=== PATIENT | female | born 1955 | race American Indian/Alaskan Native ===

== ENCOUNTER → 2018-02-10 07:53 | Outpatient (CLI) | payer OTHER, SELFPAY ==
[2018-02-10 08:34] LABS: Add Manual Diff / Slide Review NO; Basophils Percent Auto 0.4 % (0-2); Eosinophils Percent Auto 2.8 % (2-4); Hematocrit 45.2 % (36-46); Hemoglobin 15.3 g/dL (12.0-16.0); Lymphocytes Percent Auto 37.4 % (25-40); Mean Corpuscular HGB Conc 33.8 % (30-36); Mean Corpuscular Hemoglobin 27.6 PG (26-34); Mean Corpuscular Volume 81.7 fL (80-100); Monocytes Percent Auto 6.6 % (3-14); Neutrophils Absolute Auto 3100 /uL (3000-5900); Neutrophils Percent Auto 52.8 % (50-75); Platelet Count 205 X10^3/uL (150-400); Red Blood Cell Count 5.53 X10^6/uL (4.0-5.2); Red Cell Distribution Width 14.8 % (11.6-14.8)
== END ==
PROVIDERS: PCP Nurse Practitioner Family; Visit Provider Nurse Practitioner Family
DX: B99.9 Unspecified infectious disease (principal)
CPT/HCPCS: 36415; 85025

== ENCOUNTER → 2018-12-05 07:50 | Outpatient (CLI) | payer MEDICARE, SELFPAY ==
[2018-12-05 08:32] LABS: Hematocrit 46.6 % (36-46); Hemoglobin 15.2 g/dL (12.0-16.0)
[2018-12-05 08:34] LABS: Cholesterol 213 mg/dL (140-199); HDL Cholesterol 69 mg/dL (40-60); LDL Cholesterol Calculated 130 mg/dL (<100); Triglycerides 70 mg/dL (35-150)
[2018-12-05 09:01] LABS: TSH w/ Reflex to FT4 1.45 uIU/mL (0.47-4.68)
[2018-12-05 09:20] LABS: Vitamin B12 702 pg/mL (239-931)
== END ==
PROVIDERS: PCP Student in an Organized Health Care Education/Training Program; Visit Provider Student in an Organized Health Care Education/Training Program
DX: Z13.220 Encounter for screening for lipoid disorders (principal); R53.83 Other fatigue; Z91.89 Other specified personal risk factors, not elsewhere classified
CPT/HCPCS: 36415; 80061; 82306; 82607; 84443; 85014; 85018

== ENCOUNTER → 2021-01-05 13:04 | Outpatient (CLI) | payer OTHER, SELFPAY | PROVIDERS: PCP Nurse Practitioner Family; Referring Provider Nurse Practitioner Family; Visit Provider Nurse Practitioner Family | DX: M81.0 Age-related osteoporosis without current pathological fracture (principal); Z78.0 Asymptomatic menopausal state; Z82.62 Family history of osteoporosis; Z87.891 Personal history of nicotine dependence | CPT/HCPCS: 77080 ==

== ENCOUNTER 2022-08-30 11:20 | Emergency (ER) | payer OTHER, SELFPAY ==
[2022-08-30] VITALS (11 sets, daily range): BP systolic 99–175; BP diastolic 67–95; PULSE 67–97; RESP 15–23; TEMP 36.7; O2SAT 97–100; BMI 23.0
--- NOTE | 2022-08-30 11:37 | DI.CT.S_ITS ---
PROCEDURE: CT HEAD/BRAIN WO CON INDICATIONS: fall TECHNIQUE: Noncontrast 4.5 mm thick angled axial sections acquired from the foramen magnum to the vertex, with coronal and sagittal reformats. For radiation dose reduction, the following was used: automated exposure control, adjustment of mA and/or kV according to patient size. COMPARISON: None. FINDINGS: Image quality: Excellent. CSF spaces: Basal cisterns are patent. No extra-axial fluid collections. The ventricles are symmetric in size and shape. Brain: No intracranial bleeds or masses. There is cerebral volume loss for age, with resultant ventricular and sulcal prominence. There are periventricular and deep white matter chronic small vessel ischemic changes. There is intracranial internal carotid artery atherosclerosis. Skull and face: Mildly displaced bilateral nasal bone fractures. Calvaria and skull base intact. Sinuses: Visualized sinuses and mastoids are clear. IMPRESSION: No acute intracranial finding. Mildly displaced bilateral nasal bone fractures. Dictated by: Jarrod Woodruff M.D. on 08/30/2022 at 12:28 Approved by: Jarrod Woodruff M.D. on 08/30/2022 at 12:29
--- NOTE | 2022-08-30 11:37 | DI.CT.S_ITS ---
PROCEDURE: CT CERVICAL SPINE WO CON INDICATIONS: fall TECHNIQUE: Noncontrast 3 mm thick sections acquired from the skull base to the T4 level. Sagittal and coronal reformats were then constructed. For radiation dose reduction, the following was used: automated exposure control, adjustment of mA and/or kV according to patient size. COMPARISON: None. FINDINGS: Image quality: Excellent. Bones: No fracture or dislocation. Intervertebral disc spaces and facets are congruent without asymmetric or abnormal widening. No suspicious lytic or blastic osseous lesion. Mild degenerative changes most pronounced at C4-C5 and C6-C7. Congenital versus degenerative fusion of the left C2-C3 facet. Visualized superior ribs are intact. Soft tissues: Prevertebral soft tissues are normal in thickness. No paravertebral hematomas. IMPRESSION: No CT evidence of acute traumatic cervical spine injury. The Dictated by: Jarrod Wodoruff M.D. on 08/30/2022 at 12:34 Approved by: Jarrod Woodruff M.D. on 08/30/2022 at 12:36
--- NOTE | 2022-08-30 11:37 | DI.RAD.S_ITS ---
PROCEDURE: XR CHEST 1V INDICATIONS: chest pain TECHNIQUE: One view of the chest was acquired. COMPARISON: [facility], , CHEST 2 VIEW, 09/26/2007, 8:42. FINDINGS: Surgical changes and devices: None. Lungs and pleura: Lungs are clear. No pleural effusions or pneumothorax. Mediastinum: Mediastinal contours appear normal. Heart size is normal. Bones and chest wall: No suspicious bony lesions. Overlying soft tissues appear unremarkable. IMPRESSION: No evidence acute pulmonary process. Dictated by: Frankie Michaud M.D. on 08/30/2022 at 12:24 Approved by: Frankie Michaud M.D. on 08/30/2022 at 12:24
--- NOTE | 2022-08-30 11:37 | DI.CT.S_ITS ---
PROCEDURE: CT FACIAL BONES WO CON INDICATIONS: fall TECHNIQUE: Noncontrast 2.5 mm thick axial images acquired from the mandible through the frontal sinuses, with coronal and sagittal reformatting. For radiation dose reduction, the following was used: automated exposure control, adjustment of mA and/or kV according to patient size. COMPARISON: None. FINDINGS: Image quality: Excellent. Bones and teeth: Mildly displaced bilateral nasal bone fractures, slightly comminuted on the right. Sinuses: Paranasal sinuses are aerated, without fluid levels, mucosal thickening, or mucoceles. Mastoid air cells are aerated. Soft tissues: No edema, masses, or fluid collections. No enlarged lymph nodes. No soft tissue lacerations or debris. Vascular: Visualized vascular structures appear normal in the absence of contrast. Bony vascular foramina and canals are intact. IMPRESSION: Acute mildly displaced bilateral nasal bone fractures, slightly comminuted on the right. Dictated by: Jarrod Woodruff M.D. on 08/30/2022 at 12:29 Approved by: Jarrod Woodruff M.D. on 08/30/2022 at 12:30
--- NOTE | 2022-08-30 12:34 | ED_ITS ---
HPI - Fall General Chief Complaint: Fall Stated Complaint: glf Time Seen by Provider: 08/30/22 11:36 History of Present Illness HPI Narrative: Patient is a 66-year-old female who presents have a ground level fall. She says she tripped over her own feet going on the stairs. She fell face forward hitting her nose. She did not lose consciousness. She is alert laceration on her forehead on the right side. She is not on any antiplatelet or anticoagulation. She has epistaxis which bleeding is now controlled. Per EMS started becoming vasovagal had hypotensive reaction which now is getting better with fluids. She denies any other pain or injury. Able to move all extremities. She woke up this morning she was feeling in her normal state of health both yesterday and today. She denies any chest pain palpitations or dizziness prior to fall. Related Data Home Medications Medication Instructions Recorded Confirmed [VITAMIN D] Q DAY ##0 12/29/11 01/04/20 Previous Rx's Medication Instructions Recorded acyclovir 400 mg tablet (Zovirax) 400 mg PO TID #15 tabs 11/28/18 citalopram 20 mg tablet 20 mg PO DAILY #90 tabs 12/08/20 Allergies Allergy/AdvReac Type Severity Reaction Status Date / Time amoxicillin [AMOXICILLIN] Allergy Mild RASH Verified 01/04/20 09:00 codeine [CODEINE] Allergy Mild ? Verified 01/04/20 09:00 erythromycin base Allergy Mild RASH Verified 01/04/20 09:00 [ERYTHROMYCIN BASE] Penicillins [PENICILLINS] Allergy Mild RASH Verified 01/04/20 09:00 prochlorperazine Allergy Mild LACK JAW Verified 01/04/20 09:00 [PROCHLORPERAZINE] doxycycline [DOXYCYCLINE] Allergy Unknown Verified 01/04/20 09:00 Review of Systems Review of Systems Narrative: GENERAL: Denies chills, fatigue, malaise, fever, sweats, travel HEENT: Denies sinus pain, ear pain, sore throat, difficulty swallowing, neck pain RESPIRATORY: Denies dyspnea, cough, wheezing, hemoptysis, sputum. CARDIOVASCULAR: Denies chest pain, palpitations, orthopnea, edema GASTROINTESTINAL: Denies nausea, vomiting, abdominal pain, diarrhea, constipation, melena. : Denies dysuria, frequency, incontinence, hematuria, urinary retention, flank pain. MUSCULOSKELETAL: Denies weakness, joint pain, or bony pain SKIN: No rash, no erythema, no pruritus NEUROLOGIC: Fall, see HPI PSYCHIATRIC: No concerning psychosocial issues. 12 point review of systems is negative except for those stated above and HPI Patient History Medical History Abnormal Pap smear of cervix Anemia (1957) Anxiety Arthritis (2006) Bipolar disorder (~1990) Cataract (2014) Chicken pox (1961) Depression (~2009) Foot pain (2013) Hayfever Measles (1959) Mumps Osteoarthritis Osteopenia (~1999) Sensitivity to sunlight Shoulder pain (1997) Sleep apnea Tinnitus (2009) Surgical History Anesthesia complication History of hip replacement (04/2010) Family History Brother Mental health problem COPD (chronic obstructive pulmonary disease) Fibromyalgia Father Cancer High cholesterol Grandmother Dementia Pneumonia Mother Hypertension Grandfather Hypertension Stroke Grandmother Heart disease Sister Breast cancer Thyroid disorder Melanoma Grandfather Cancer Social History marital status: household members: none lives independently: Yes housing: apartment pets and animals: No occupational status: employed special asiya needs: No leisure activities: exercise Smoking Status: Former smoker alcohol intake: never substance use type: does not use Smoking Status: Former smoker Exam Initial Vital Signs Initial Vital Signs: Vital Signs Temperature 98.1 F 08/30/22 11:27 Pulse Rate 67 08/30/22 11:27 Respiratory Rate 16 08/30/22 11:27 Blood Pressure 99/67 08/30/22 11:27 Pulse Oximetry 97 08/30/22 11:27 Oxygen Delivery Method 08/30/22 11:27 GENERAL: Alert 66-year-old female obvious head injury awake alert answer questions HEENT: Head 5 cm laceration right forehead good skin approximation, extraocular muscles intact, KAY, no septal hematoma no significant bony deformity NECK: C-collar in place CARDIOVASCULAR: Regular rate and rhythm without murmurs, rubs or gallops. RESPIRATORY: Breath sounds equal bilaterally, no wheezes rales or rhonchi. No crepitations, no subcutaneous air, chest is nontender, no signs of trauma ABDOMEN: Soft, nontender. Normoactive bowel sounds all 4 quadrants. No guarding or rebound. BACK: Nontender vertebrae, no step-offs, no contusions PELVIS: stable. EXTREMITIES: Normal range of motion, no clubbing or edema. Right upper extremity: Within normal limits Left upper extremity: Within normal limits Right lower extremity: Within normal limits Left lower extremity:Within normal limits NEUROLOGICAL: Cranial nerves II through XII grossly intact. Normal gait and speech. SKIN: Forehead laceration 5cm on right side Procedures Laceration Repair Laceration 1: Side (If applicable): right Size (cm): 5 Description: linear Depth: simple, single layer Local Anesthetic: lidocaine 2% and with epi Amount of anesthesia used (mL): 5 Skin layer closed with: nylon Skin layer suture size: 4-0 Number of sutures: 8 Technique: simple, interrupted Course Orders Ordered: ED Orders 08/30/22 12:31 Complete Blood Count AUTO DIFF Stat Comprehensive Metabolic Panel Stat Lipase Stat Troponin & CK Cardiac Panel Stat Discontinued Medications Sodium Chloride (Normal Saline 0.9%) 1,000 mls @ 1,000 mls/hr IV BOLUS ONE Stop: 08/30/22 12:36 Last Infusion: 08/30/22 14:00 Dose: 0 mls/hr Documented By: Admin: 08/30/22 12:53 Dose: 1,000 mls/hr Documented By: GAEL Morphine Sulfate (Morphine 2 Mg/Ml Inj) 2 mg IV NOW ONE Stop: 08/30/22 12:43 Last Admin: 08/30/22 12:54 Dose: 2 mg Documented By: GAEL Ondansetron HCl (Ondansetron 4 Mg/2 Ml Inj) 4 mg IV NOW ONE Stop: 08/30/22 12:45 Last Admin: 08/30/22 12:53 Dose: 4 mg Documented By: GAEL Vital Signs Vital signs: Vital Signs - 8 hr 08/30/22 13:30 08/30/22 13:31 08/30/22 13:31 Pulse Rate 93 H 97 H Respiratory Rate Blood Pressure 157/83 H Pulse Oximetry 100 100 Oxygen Delivery Method 08/30/22 14:00 08/30/22 14:00 08/30/22 14:25 Pulse Rate 80 Respiratory Rate 23 Blood Pressure 138/95 H 132/72 Pulse Oximetry 99 Oxygen Delivery Method 08/30/22 14:25 08/30/22 15:47 Pulse Rate 82 86 Respiratory Rate Blood Pressure 132/72 Pulse Oximetry 99 97 Oxygen Delivery Method Room Air fall Lab Data Result diagrams: 08/30/22 12:31 08/30/22 12:31 Labs: Lab Results 08/30/22 08/30/22 08/30/22 Range/Units 11:30 12:31 12:31 WBC 9.3 (4.5-11.0) X10^3/uL RBC 5.56 H (4.0-5.2) X10^6/uL Hgb 15.5 (12.0-16.0) g/dL Hct 46.7 H (36-46) % MCV 84.0 (80-100) fL MCH 27.8 (26-34) PG MCHC 33.2 (30-36) % RDW 13.5 (11.6-14.8) % Plt Count 194 (150-400) X10^3/uL Neut % (Auto) 71.3 (50-75) % Lymph % (Auto) 21.6 L (25-40) % [place] % (Auto) 5.4 (3-14) % Eos % (Auto) 0.9 L (2-4) % Baso % (Auto) 0.8 (0-2) % Neut # (Auto) 6600 (6133-4955) /uL Lymph # (Auto) 2000 (0884-8417) /uL [place] # (Auto) 500 (0-900) /uL Eos # (Auto) 100 (0-450) /uL Baso # (Auto) 100 (0-100) /uL Sodium 139 (137-145) mmol/L Potassium 4.2 (3.4-5.1) mmol/L Chloride 102 (98-107) mmol/L Carbon Dioxide 29 (22-32) mmol/L BUN 16 (7-17) mg/dL Creatinine 0.90 (0.52-1.04) mg/dL Estimated GFR > 60 (>60) mL/min BUN/Creatinine Ratio 17.8 (6-22) Glucose 104 (80-110) mg/dL Calcium 9.4 (8.4-10.2) mg/dL Total Bilirubin 0.7 (0.2-1.3) mg/dL AST 25 (14-36) IU/L ALT 22 (<35) IU/L Alkaline Phosphatase 84 (38-126) U/L Total Creatine Kinase 46 (30-135) U/L CK-MB (CK-2) TNP CK-MB (CK-2) Rel Index TNP Troponin I < 0.012 (0.01-0.034) ng/mL Total Protein 7.5 (6.3-8.2) g/dL Albumin 4.3 (3.5-5.0) g/dL Globulin 3.2 (1.7-4.1) g/dL Albumin/Globulin Ratio 1.3 (1.0-2.8) Lipase 258 (23-300) U/L Urine RBC None seen (0-5/HPF) Urine WBC 0-1/hpf (0-5/HPF) Ur Squamous Epith Cells 1-5 /hpf (0-5/HPF) Urine Bacteria None seen (None) Ur Culture Indicated? Cult not indicated Urine Dip Bedside Urine Glucose Negative Bedside Urine Bilirubin - Negative Bedside Urine Ketone - Negative Urine Specific [place] 1.015 Bedside Urine Occult Blood +/- Bedside Urine pH 6.0 Bedside Urine Protein +/- 15 Bedside Urine Urobilinogen - Negative Bedside Urine Nitrite - Negative Bedside Urine Leukocytes - Negative Esterase Imaging Data CT - cervical spine: Radiologist's Impression: nt: Yoly Haro MR#: [id number] : 1955 Acct:[id number] Age/Sex: 66 / F Date of Service: 08/30/22 Loc: ED Accession Number: [id number] ?? Procedure: CT cervical spine wo con Ordering Provider: Liz Torres D.O. PROCEDURE:? CT CERVICAL SPINE WO CON ? INDICATIONS:? fall ? TECHNIQUE:? Noncontrast 3 mm thick sections acquired from the skull base to the T4 level.? Sagittal and coronal reformats were then constructed.? For radiation dose reduction, the following was used:? automated exposure control, adjustment of mA and/or kV according to patient size.? ? COMPARISON:? None. ? FINDINGS:? Image quality:? Excellent.? ? Bones:? No fracture or dislocation.? Intervertebral disc spaces and facets are congruent without asymmetric or abnormal widening.? No suspicious lytic or blastic osseous lesion.? Mild degenerative changes most pronounced at C4-C5 and C6-C7.? Congenital versus degenerative fusion of the left C2-C3 facet.? Visualized superior ribs are intact.? ? Soft tissues:? Prevertebral soft tissues are normal in thickness.? No paravertebral hematomas.? ? ? IMPRESSION:? No CT evidence of acute traumatic cervical spine injury.? The ? Dictated by: Jarrod Woodruff M.D. on 08/30/2022 at 12:34 ? ? Chest x-ray: Radiologist's Impression: Signed Patient: Yoly Haro MR#: [id number] : 1955 Acct:[id number] Age/Sex: 66 / F Date of Service: 08/30/22 Loc: ED Accession Number: [id number] ?? Procedure: XR chest 1V Ordering Provider: Liz Torres D.O. PROCEDURE:? XR CHEST 1V ? INDICATIONS:? chest pain ? TECHNIQUE:? One view of the chest was acquired.? ? COMPARISON:? [facility], CHEST 2 VIEW, 09/26/2007, 8:42. ? FINDINGS:? ? Surgical changes and devices:? None.? ? Lungs and pleura:? Lungs are clear.? No pleural effusions or pneumothorax.? ? Mediastinum:? Mediastinal contours appear normal.? Heart size is normal.? ? Bones and chest wall:? No suspicious bony lesions.? Overlying soft tissues appear unremarkable.? ? IMPRESSION:? No evidence acute pulmonary process. ? ? ? Dictated by: Frankie Michaud M.D. on 08/30/2022 at 12:24 ? ? CT scan - head: Radiologist's Impression: Signed Patient: Yoly Haro MR#: [id number] : 1955 Acct:[id number] Age/Sex: 66 / F Date of Service: 08/30/22 Loc: ED Accession Number: [id number] ?? Procedure: CT head/brain wo con Ordering Provider: Liz Torres D.O. PROCEDURE:? CT HEAD/BRAIN WO CON ? INDICATIONS:? fall ? TECHNIQUE:? Noncontrast 4.5 mm thick angled axial sections acquired from the foramen magnum to the vertex, with coronal and sagittal reformats.? For radiation dose reduction, the following was used:? automated exposure control, adjustment of mA and/or kV according to patient size.? ? COMPARISON:? None. ? FINDINGS:? Image quality:? Excellent.? ? CSF spaces:? Basal cisterns are patent.? No extra-axial fluid collections.? The ventricles are symmetric in size and shape.? ? Brain:? No intracranial bleeds or masses.? There is cerebral volume loss for age, with resultant ventricular and sulcal prominence.? There are periventricular and deep white matter chronic small vessel ischemic changes.? There is intracranial internal carotid artery atherosclerosis.? ? Skull and face:? Mildly displaced bilateral nasal bone fractures.? Calvaria and skull base intact. ? Sinuses:? Visualized sinuses and mastoids are clear.? ? IMPRESSION:? No acute intracranial finding.? Mildly displaced bilateral nasal bone fractures. ? ? Dictated by: Jarrod Woodruff M.D. on 08/30/2022 at 12:28 ? ? Approved by: Jarrod Woodruff M.D. on 08/30/2022 at 12:29 ? CT Face: Radiologist's Impression: Signed Patient: Yoly Haro MR#: [id number] : 1955 Acct:[id number] Age/Sex: 66 / F Date of Service: 08/30/22 Loc: ED Accession Number: [id number] ?? Procedure: CT facial bones wo con Ordering Provider: Liz Torres D.O. PROCEDURE:? CT FACIAL BONES WO CON ? INDICATIONS:? fall ? TECHNIQUE:? Noncontrast 2.5 mm thick axial images acquired from the mandible through the frontal sinuses, with coronal and sagittal reformatting.? For radiation dose reduction, the following was used:? automated exposure control, adjustment of mA and/or kV according to patient size.? ? COMPARISON:? None. ? FINDINGS:? Image quality:? Excellent.? ? Bones and teeth:? Mildly displaced bilateral nasal bone fractures, slightly comminuted on the right. ? Sinuses:? Paranasal sinuses are aerated, without fluid levels, mucosal thickening, or mucoceles.? Mastoid air cells are aerated.? ? Soft tissues:? No edema, masses, or fluid collections.? No enlarged lymph nodes.? No soft tissue lacerations or debris.? ? Vascular:? Visualized vascular structures appear normal in the absence of contrast.? Bony vascular foramina and canals are intact.? ? IMPRESSION:? Acute mildly displaced bilateral nasal bone fractures, slightly comminuted on the right. ? ? Dictated by: Jarrod Woodruff M.D. on 08/30/2022 at 12:29 ? ? Approved by: Jarrod Woodruff M.D. on 08/30/2022 at 12:30 ? ECG Data Interpretation: NSR 80, PR182 QRS82 CBG150 Q-wave noted in lead [address] elevations or depressions no T-wave inversions signs of ischemia or previous EKGs to compare MDM Narrative Medical decision making narrative: It sounds as though patient had a mechanical fall causing her to fall on her fac e. She is laceration on the right side which is easily sutured. She is found to have mild nasal bone fracture as well. She said likely had a vasovagal episode where her blood pressure decreased but it quickly resolved with IV fluids. Blood work is overall reassuring. At this time no need for any further evaluation or workup. She is given strict return precautions. Discharge Plan Departure Patient Disposition: Home Clinical Impression: Fall, Laceration, Closed fracture nasal bone Instructions: DI for Nose Fracture, DI for Laceration Repair Activity Restrictions/Additional Instructions: *You have been diagnosed with laceration, nose fracture *What to do: Have sutures removed in about 7 days by her primary care provider walk-in clinic. Keep clean and dry with soap and water okay to bathe and shower however no swimming. May apply antibiotic ointment on it 1-2 times daily to help reduce scarring. Do not blow your nose your nose is broken. Will likely heal without any surgery but may need to follow-up with ENT. *Continue to take medications as directed Tylenol 650 mg every 4-6 hours needed for [id number]-ovaeqtwg pain Ibuprofen 600 mg every 6 hours if needed for hnqr-yk-rmkhiait pain *Follow up with your primary care provider in 2-3 days or call [phone] *Return to ER if you should have increasing redness swelling drainage, persistent headache persistent vomiting or any new, worsening or concerning symptoms Prescriptions: No Action [VITAMIN D] Q DAY Qty: 0 citalopram 20 mg tablet 20 mg PO DAILY Qty: 90 0RF Rx Instructions: PT DUE FOR APPT PRIOR TO END OF RX FOR CONT'D FILLS. PLEASE CALL TO SCHED. APPT. THANKS 12/08/20 acyclovir [Zovirax] 400 mg tablet 400 mg PO TID Qty: 15 5RF Referrals: Desiree Bangura ARNP [Primary Care Provider] - Visit Report Forms: Patient Portal/API
[2022-08-30 12:38] LABS: Add Manual Diff / Slide Review NO; Basophils Absolute Auto 100 /uL (0-100); Basophils Percent Auto 0.8 % (0-2); Eosinophils Absolute Auto 100 /uL (0-450); Eosinophils Percent Auto 0.9 % (2-4); Hematocrit 46.7 % (36-46); Hemoglobin 15.5 g/dL (12.0-16.0); Lymphocytes Absolute Auto 2000 /uL (1100-4500); Lymphocytes Percent Auto 21.6 % (25-40); Mean Corpuscular HGB Conc 33.2 % (30-36); Mean Corpuscular Hemoglobin 27.8 PG (26-34); Monocytes Absolute Auto 500 /uL (0-900); Monocytes Percent Auto 5.4 % (3-14); Neutrophils Absolute Auto 6600 /uL (1500-7000); Neutrophils Percent Auto 71.3 % (50-75); Platelet Count 194 X10^3/uL (150-400); Red Blood Cell Count 5.56 X10^6/uL (4.0-5.2); Red Cell Distribution Width 13.5 % (11.6-14.8); White Blood Cell Count 9.3 X10^3/uL (4.5-11.0)
[2022-08-30 12:38] LABS: RBC Urine None Seen (0-5/HPF)
[2022-08-30 12:39] LABS: Bacteria Urine None Seen; Culture Indicated Urine Cult Not Indicated; Squamous Epithelial Cell Urine 1-5 /HPF (0-5/HPF); WBC Urine 0-1/HPF (0-5/HPF)
[2022-08-30 12:53] LABS: Alanine Aminotransferase 22 IU/L (<35); Albumin 4.3 g/dL (3.5-5.0); Albumin Globulin Ratio 1.3 (1.0-2.8); Alkaline Phosphatase 84 U/L (38-126); Aspartate Aminotransferase 25 IU/L (14-36); BUN Creatinine Ratio 17.8 (6-22); Bilirubin Total 0.7 mg/dL (0.2-1.3); Blood Urea Nitrogen 16 mg/dL (7-17); Calcium 9.4 mg/dL (8.4-10.2); Carbon Dioxide 29 mmol/L (22-32); Chloride 102 mmol/L (98-107); Creatine Kinase 46 U/L (30-135); Estimated Glomerular Filt Rate > 60 mL/min (>60); Globulin 3.2 g/dL (1.7-4.1); Glucose 104 mg/dL (80-110); HEMOLYSIS < 15 (0-50); Lipase 258 U/L (23-300); Potassium 4.2 mmol/L (3.4-5.1); Sodium 139 mmol/L (137-145); Total Protein 7.5 g/dL (6.3-8.2)
[2022-08-30] MEDS: SODIUM CHLORIDE 0.9% 1,000 ML 1000 ML IV (12:53)
[2022-08-30] MEDS: ONDANSETRON 4 MG/2 ML INJ IV (12:53)
[2022-08-30] MEDS: MORPHINE 2 MG/ML INJ IV (12:54)
[2022-08-30 13:03] LABS: Troponin I < 0.012 ng/mL (0.01-0.034)
[2022-08-30] MEDS: LIDOCAINE 2% INJ SDV 5 ML (13:15)
== END 2022-08-30 14:30 | disposition home or self-care (01) ==
PROVIDERS: Emergency Provider Emergency Medicine; PCP Nurse Practitioner Family
DX: S02.2XXA Fracture of nasal bones, initial encounter for closed fracture (principal); S01.81XA Laceration without foreign body of other part of head, initial encounter; R07.9 Chest pain, unspecified; W18.30XA Fall on same level, unspecified, initial encounter
CPT/HCPCS: 12013; 36415; 70450; 70486; 71045; 72125; 80053; 81003; 81015; 82550; 83690; 84484; 85025; 93005; 93010; 96361; 96374; 96375; 99284; 99285; J2270; J2405

== ENCOUNTER → 2022-10-21 09:02 | Outpatient (CLI) | payer OTHER, SELFPAY ==
--- NOTE | 2022-10-21 | DI.MG.S_ITS ---
BILATERAL DIGITAL SCREENING MAMMOGRAM 3D/2D WITH CAD: 10/21/2022 CLINICAL: Routine screening. Family history of breast cancer. Comparison is made to exams dated: 01/21/2015 mammogram, 01/11/2014 mammogram, and 01/10/2013 mammogram - [facility]. There are scattered areas of fibroglandular density in both breasts (category b / 25%-50% glandular tissue). Current study was also evaluated with a Computer Aided Detection (CAD) system. There are benign calcifications in the left breast. No significant masses, calcifications, or other findings are seen in either breast. There has been no significant interval change. IMPRESSION: BENIGN There is no mammographic evidence of malignancy. A 1 year screening mammogram is recommended. Based on the Tyrer Cuzick model (a risk assessment model) the patient's lifetime risk is 9.0% and her 10 year risk is 5.3%. According to the ACR, ACS, and NCCN guidelines, an annual breast MRI exam along with mammogram is recommended if the patient's lifetime risk is 20% or greater. This exam was interpreted at Station ID: [id number]. NOTE: For mammograms, a report in lay terms will be sent to the patient. Approximately 15% of breast malignancies will not be visualized mammographically. In the management of a palpable breast mass, a negative mammogram must not discourage biopsy of a clinically suspicious lesion. Electronically Signed By: Megan bolaños/shanice:10/21/2022 16:13:14 letter sent: Normal Exam ACR BI-RADS Category 2: Benign Finding(s) 3342F
== END ==
PROVIDERS: PCP Family Medicine; Referring Provider Family Medicine; Visit Provider Family Medicine
DX: Z12.31 Encounter for screening mammogram for malignant neoplasm of breast (principal); Z80.3 Family history of malignant neoplasm of breast
CPT/HCPCS: 77063; 77067

== ENCOUNTER → 2022-10-22 11:44 | Outpatient (CLI) | payer OTHER, SELFPAY | PROVIDERS: PCP Family Medicine; Referring Provider Family Medicine; Visit Provider Family Medicine | DX: Z78.0 Asymptomatic menopausal state (principal); M81.0 Age-related osteoporosis without current pathological fracture | CPT/HCPCS: 77080; 77081 ==

== ENCOUNTER → 2023-09-09 16:21 | Outpatient (CLI) | payer OTHER, SELFPAY ==
--- NOTE | 2023-09-09 | DI.US.S_ITS ---
PROCEDURE: US PERIPH VENOUS LOW EXTREM LT INDICATIONS: Localized swelling, mass and lump, left lower limb TECHNIQUE: Real-time imaging, as well as color and pulse Doppler interrogation, were performed of the lower extremity deep veins from the inguinal ligament to the popliteal fossa, with documentation of the visualized calf veins. COMPARISON: None. FINDINGS: The common femoral, femoral, popliteal, and the visualized calf veins are normally compressible, and free of intraluminal thrombus. Color and pulse Doppler demonstrate normal phasic intraluminal flow. There is normal augmentation response to distal compression maneuver. IMPRESSION: No findings of lower extremity deep venous thrombosis. Dictated by: Hugh Dick M.D. on 09/09/2023 at 15:51 Approved by: Hugh Dick M.D. on 09/09/2023 at 15:52
== END ==
PROVIDERS: PCP Family Medicine; Referring Provider Family Medicine; Visit Provider Family Medicine
DX: R22.42 Localized swelling, mass and lump, left lower limb (principal)
CPT/HCPCS: 93971

== ENCOUNTER → 2023-11-11 07:57 | Outpatient (CLI) | payer OTHER, SELFPAY ==
--- NOTE | 2023-11-11 07:58 | DI.MG.S_ITS ---
BILATERAL DIGITAL SCREENING MAMMOGRAM 3D/2D WITH CAD: 11/11/2023 CLINICAL: Routine screening. Family history of breast cancer. Comparison is made to exams dated: 10/21/2022 mammogram, 01/21/2015 mammogram, and 01/11/2014 mammogram - [facility]. There are scattered areas of fibroglandular density in both breasts (category b / 25%-50% glandular tissue). Current study was also evaluated with a Computer Aided Detection (CAD) system. There are benign calcifications in the left breast. No significant masses, calcifications, or other findings are seen in either breast. There has been no significant interval change. IMPRESSION: BENIGN There is no mammographic evidence of malignancy. A 1 year screening mammogram is recommended. Based on the Tyrer Cuzick model (a risk assessment model) the patient's lifetime risk is 8.5% and her 10 year risk is 5.4%. According to the ACR, ACS, and NCCN guidelines, an annual breast MRI exam along with mammogram is recommended if the patient's lifetime risk is 20% or greater. This exam was interpreted at Station ID: [id number]. NOTE: For mammograms, a report in lay terms will be sent to the patient. Approximately 15% of breast malignancies will not be visualized mammographically. In the management of a palpable breast mass, a negative mammogram must not discourage biopsy of a clinically suspicious lesion. Electronically Signed By: Obinna diaz/shanice:11/11/2023 12:37:58 letter sent: Normal Exam ACR BI-RADS Category 2: Benign Finding(s) 3342F
== END ==
PROVIDERS: PCP Family Medicine; Referring Provider Family Medicine; Visit Provider Family Medicine
DX: Z12.31 Encounter for screening mammogram for malignant neoplasm of breast (principal); Z80.3 Family history of malignant neoplasm of breast; R92.323 Mammographic fibroglandular density, bilateral breasts
CPT/HCPCS: 77063; 77067

== ENCOUNTER → 2024-01-01 09:41 | Outpatient (CLI) | payer OTHER, SELFPAY ==
[2024-01-01 10:28] LABS: Influenza A - CEPHEID Flu A NEGATIVE (NEGATIVE); Influenza B - CEPHEID Flu B NEGATIVE (NEGATIVE); Respiratory Syncytial Virus Negative (Negative)
[2024-01-01 11:25] LABS: COVID-19 CEPHEID 4-PLEX PCR Negative (Negative)
== END ==
PROVIDERS: PCP Family Medicine; Visit Provider Physician Assistant Medical
DX: R06.2 Wheezing (principal)
CPT/HCPCS: 0241U

== ENCOUNTER 2024-12-25 12:15 | Outpatient (RCR) | payer OTHER, SELFPAY ==
--- NOTE | 2024-12-11 12:40 | PT.OIE ---
Current Diagnoses Benign paroxysmal vertigo, left ear (12/11/24) Benign paroxysmal vertigo, bilateral (12/11/24) Dizziness and giddiness (12/11/24) Past Medical History (Last Reviewed 08/30/22 @ 21:28 by Liz Torres DO) Abnormal Pap smear of cervix Anemia (1957) Anxiety Arthritis (2006) Bipolar disorder (~1990) Cataract (2014) Chicken pox (1961) Depression (~2009) Foot pain (2013) Hayfever Measles (1959) Mumps Osteoarthritis Osteopenia (~1999) Sensitivity to sunlight Shoulder pain (1997) Sleep apnea Tinnitus (2009) Past Surgical History (Last Reviewed 08/30/22 @ 21:28 by Liz Torres DO) Anesthesia complication History of hip replacement (04/2010) Visit Care Team Role Provider Type Tino Perez MD Attending Provider Physician Family Provider Primary Care Provider Referring Provider Specialty: Family Practice Address: [facility] [place], [place], [facility] Email: [email or web address] Physical Therapy Initial Evaluation PT-OP-A Visit Information Start: 12/11/24 12:19 Freq: Status: Active Protocol: Document 12/11/24 11:30 DCW (Rec: 12/11/24 12:39 DCW [id number]) Out-Patient Physical Therapy Visit Information Visit Information Visit Type Initial Evaluation Visit Start Time 11:30 Visit Stop Time 12:15 Visit Number 1 Number of CARDIOLOGY TEACHER Visits 0 Evaluation Information Evaluation Date 12/11/24 PT-OP-B Current Condition Start: 12/11/24 12:19 Freq: Status: Active Protocol: Document 12/11/24 11:30 DCW (Rec: 12/11/24 12:39 DCW [id number]) Current Condition History of Current Condition Onset Date 08/28/22 Current Complaints Positional dizziness History of Current Condition Pt is a 69 year old female complaining of a two year history of motion-induced vertigo. Pt reports episodes last two minutes, maybe less. Symptoms are provoked by changing head positions. Symptoms began following a fall on 08/28/22, pt notes the fall resulted in a broken nose, jammed shoulder, and a smashed knee. admits she hasn 't felt quite right since. Pt denies recent hearing changes, diplopia, dysarthria, discoordination, or decreased mentation/consciousness. Pt reports symptoms are waxing/ waning in nature. Pt denies hx of HTN, hyperlipidemia, diabetes, arrhythmia, seizure, migraines, or CVA. Treatment Goals Patient/Caregiver Goals Dizziness has limited participation in exercise, whic has resulted in increased hip/back pain. Pt would like to be able to return to previous exercise program. PT-OP-C Subjective Start: 12/11/24 12:19 Freq: Status: Active Protocol: Document 12/11/24 11:30 DCW (Rec: 12/11/24 12:39 DCW [id number]) OP-PT Subjective Patient Comments Patient Comments I really just want to be able to exercise. Patient Questionnaires Dizziness Handicap Inventory DHI Score 60% Other Questionnaire Name and Score Falls Efficacy Scale - international: 35/64 PT-OP-O Vestibular Start: 12/11/24 12:19 Freq: Status: Active Protocol: Document 12/11/24 11:30 DCW (Rec: 12/11/24 12:39 DCW [id number]) Vestibular Assessment Auditory Tests Kaminski Test Within normal limits Rinne Test Negative Air Conduction Results Equal Visual Testing Smooth Pursuits Horizontal WNL Smooth Pursuits Vertical WNL Saccades Horizontal WNL Saccades Vertical WNL Heave Test Positive Bilateral Thrust Head Positive Bilateral Positional Testing Eckerman-Hallpike Positive Left,Negative Right,< 60 Seconds Rolling Test Negative Left,Negative Right Comments Vestibular Comments Nystagmus directionality difficult to determine due to pt blinking, but due to negative roll testing, assumed to indicate posterior canal. PT-OP-Q Treatments Start: 12/11/24 12:19 Freq: Status: Active Protocol: Document 12/11/24 11:30 DCW (Rec: 12/11/24 12:39 DCW [id number]) Canalithic Repositioning BPPV Treatment Shannon Affected Canal(s) Left posterior? Reps x2 Comments Modified Shannon PT-OP-T Assessment and Plan Start: 12/11/24 12:19 Freq: Status: Active Protocol: Document 12/11/24 11:30 DCW (Rec: 12/11/24 12:39 DCW [id number]) Physical Therapy Assessment Rehab Potential Rehabilitation Potential Excellent Evaluation Complexity Number of Personal Factors/Comorbidities 3 or More Number of Body Systems Impaired 4 or More Clinical Presentation at Evaluation Unstable Impairments Impairments Activity Tolerance,Balance, Functional Activities, Functional Mobility,Vestibular Goals Two Impairment Positive left Eckerman-Hallpike Centerpuncher Goal (LTG) Negative positional testing bilaterally LTG Duration 02/10/25 One Impairment Complaint of dizziness with positional changes Short Term Goal (STG) Pt to report ability to perform bed mobility with no symptoms of dizziness STG Duration 01/11/25 Assessment Summary Assessment During left Daniel-Hallpike test, pt complained of vertigo lasting approximately 10 seconds. There was noticeable nystagmus, however directionality was difficult to determine due to pt blinking. Due to negative roll testing, assume to indicate posterior canal. This would be consistent with diagnosis of left-sided posterior canal BPPV, canalithiasis-type. Pt was treated with a left-sided modified Shannon maneuver. Pt complained of symptoms in the first and third position, which is normally indicative of a successful treatment. Further positional testing was negative. Pt was educated on BPPV, expectations for treatment, possible recurrence (BPPV has a ~50% recurrence rate in the five years following treatment), and post -Shannon restrictions. Pt to return in ~1 week for a follow -up appointment, and intermittently afterward as indicated for treatment of BPPV. Physical Therapy Plan Frequency and Duration Frequency of Treatment 2x/Week Plan of Care Start Date 12/11/24 Plan of Care End Date 02/10/25 Therapeutic Interventions Therapeutic Interventions Balance Training,Canalithic Repositioning,Home Exercise Program,Manual Therapy, Neuromuscular Re-education, Patient/Caregiver Education, Self-Care/Home Management,Soft Tissue Mobilization, Therapeutic Activities, Therapeutic Exercises Next Visit Focus/Plan Next Note Type Treatment Note Next Visit Plan Positional testing, CRM as indicated
--- NOTE | 2024-12-11 12:40 | PT.OPPOC ---
Physical, Occupational & Speech Therapy At [facility] Current Diagnoses Benign paroxysmal vertigo, left ear (12/11/24) Benign paroxysmal vertigo, bilateral (12/11/24) Dizziness and giddiness (12/11/24) Visit Care Team Role Provider Type Tino Perez MD Attending Provider Physician Family Provider Primary Care Provider Referring Provider Specialty: [facility] Address: [facility] [place], [facility] Email: [email or web address] Plan Of Care PT-OP-B Current Condition Start: 12/11/24 12:19 Freq: Status: Active Protocol: Document 12/11/24 11:30 DCW (Rec: 12/11/24 12:39 DCW [id number]) Current Condition History of Current Condition Onset Date 08/28/22 Current Complaints Positional dizziness History of Current Condition Pt is a 69 year old female complaining of a two year history of motion-induced vertigo. Pt reports episodes last two minutes, maybe less. Symptoms are provoked by changing head positions. Symptoms began following a fall on 08/28/22, pt notes the fall resulted in a broken nose, jammed shoulder, and a smashed knee. admits she hasn 't felt quite right since. Pt denies recent hearing changes, diplopia, dysarthria, discoordination, or decreased mentation/consciousness. Pt reports symptoms are waxing/ waning in nature. Pt denies hx of HTN, hyperlipidemia, diabetes, arrhythmia, seizure, migraines, or CVA. Treatment Goals Patient/Caregiver Goals Dizziness has limited participation in exercise, whic has resulted in increased hip/back pain. Pt would like to be able to return to previous exercise program. PT-OP-T Assessment and Plan Start: 12/11/24 12:19 Freq: Status: Active Protocol: Document 12/11/24 11:30 DCW (Rec: 12/11/24 12:39 DCW [id number]) Physical Therapy Assessment Rehab Potential Rehabilitation Potential Excellent Evaluation Complexity Number of Personal Factors/Comorbidities 3 or More Number of Body Systems Impaired 4 or More Clinical Presentation at Evaluation Unstable Impairments Impairments Activity Tolerance,Balance, Functional Activities, Functional Mobility,Vestibular Goals Two Impairment Positive left [place]-Hallpike [facility] Goal (LTG) Negative positional testing bilaterally LTG Duration 02/10/25 One Impairment Complaint of dizziness with positional changes Short Term Goal (STG) Pt to report ability to perform bed mobility with no symptoms of dizziness STG Duration 01/11/25 Assessment Summary Assessment During left [place]-Hallpike test, pt complained of vertigo lasting approximately 10 seconds. There was noticeable nystagmus, however directionality was difficult to determine due to pt blinking. Due to negative roll testing, assume to indicate posterior canal. This would be consistent with diagnosis of left-sided posterior canal BPPV, canalithiasis-type. Pt was treated with a left-sided modified Shannon maneuver. Pt complained of symptoms in the first and third position, which is normally indicative of a successful treatment. Further positional testing was negative. Pt was educated on BPPV, expectations for treatment, possible recurrence (BPPV has a ~50% recurrence rate in the five years following treatment), and post -Shannon restrictions. Pt to return in ~1 week for a follow -up appointment, and intermittently afterward as indicated for treatment of BPPV. Physical Therapy Plan Frequency and Duration Frequency of Treatment 2x/Week Plan of Care Start Date 12/11/24 Plan of Care End Date 02/10/25 Therapeutic Interventions Therapeutic Interventions Balance Training,Canalithic Repositioning,Home Exercise Program,Manual Therapy, Neuromuscular Re-education, Patient/Caregiver Education, Self-Care/Home Management,Soft Tissue Mobilization, Therapeutic Activities, Therapeutic Exercises Next Visit Focus/Plan Next Note Type Treatment Note Next Visit Plan Positional testing, CRM as indicated Plan of Care Dates Plan of Care Start Date 12/11/24 Plan of Care End Date 02/10/25 Electronically Signed by: Matt Reyna PT 12/11/24 5627 If you are in agreement with this Plan of Care, please return a signed and dated copy. I have reviewed this Plan of Care and certify that the skilled therapy services above are required to meet the patient?s needs. Physician Signature Date Printed Name and Credentials Clinical Instructor Signature Printed Name and Credentials
--- NOTE | 2024-12-18 15:05 | PT.OTN ---
Current Diagnoses Benign paroxysmal vertigo, left ear (12/18/24) Benign paroxysmal vertigo, bilateral (12/18/24) Dizziness and giddiness (12/18/24) Physical Therapy Treatment Note PT-OP-A Visit Information Start: 12/11/24 12:19 Freq: Status: Active Protocol: Document 12/18/24 14:30 DCW (Rec: 12/18/24 15:04 DCW [id number]) Out-Patient Physical Therapy Visit Information Visit Information Visit Type Treatment Note Visit Start Time 14:30 Visit Stop Time 14:55 Visit Number 2 Number of FAMILY SERVICES SPECIALIST Visits 0 Evaluation Information Evaluation Date 12/11/24 PT-OP-B Current Condition Start: 12/11/24 12:19 Freq: Status: Active Protocol: Document 12/11/24 11:30 DCW (Rec: 12/11/24 12:39 DCW [id number]) Current Condition History of Current Condition Onset Date 08/28/22 Current Complaints Positional dizziness History of Current Condition Pt is a 69 year old female complaining of a two year history of motion-induced vertigo. Pt reports episodes last two minutes, maybe less. Symptoms are provoked by changing head positions. Symptoms began following a fall on 08/28/22, pt notes the fall resulted in a broken nose, jammed shoulder, and a smashed knee. admits she hasn 't felt quite right since. Pt denies recent hearing changes, diplopia, dysarthria, discoordination, or decreased mentation/consciousness. Pt reports symptoms are waxing/ waning in nature. Pt denies hx of HTN, hyperlipidemia, diabetes, arrhythmia, seizure, migraines, or CVA. Treatment Goals Patient/Caregiver Goals Dizziness has limited participation in exercise, whic has resulted in increased hip/back pain. Pt would like to be able to return to previous exercise program. PT-OP-C Subjective Start: 12/11/24 12:19 Freq: Status: Active Protocol: Document 12/18/24 14:30 DCW (Rec: 12/18/24 15:04 DCW [id number]) OP-PT Subjective Patient Comments Patient Comments There's still something going on. PT-OP-O Vestibular Start: 12/11/24 12:19 Freq: Status: Active Protocol: Document 12/18/24 14:30 DCW (Rec: 12/18/24 15:04 DCW [id number]) Vestibular Assessment Positional Testing Daniel-Hallpike Negative Left,Negative Right Rolling Test Negative Left,Negative Right PT-OP-Q Treatments Start: 12/11/24 12:19 Freq: Status: Active Protocol: Document 12/18/24 14:30 DCW (Rec: 12/18/24 15:04 DCW [id number]) Canalithic Repositioning BPPV Treatment Shannon Affected Canal(s) Left posterior? Reps x1 Comments Modified Shannon PT-OP-T Assessment and Plan Start: 12/11/24 12:19 Freq: Status: Active Protocol: Document 12/18/24 14:30 DCW (Rec: 12/18/24 15:04 DCW [id number]) Physical Therapy Assessment Impairments Impairments Activity Tolerance,Balance, Functional Activities, Functional Mobility,Vestibular Goals Two Impairment Positive left [place]-Hallpike Thermospray Operator Goal (LTG) Negative positional testing bilaterally LTG Duration 02/10/25 One Impairment Complaint of dizziness with positional changes Short Term Goal (STG) Pt to report ability to perform bed mobility with no symptoms of dizziness STG Duration 01/11/25 Assessment Summary Assessment Positional testing negative today. Due to pt report of something still feeling off, performed left-sided modified Shannon. Pt then did note that it felt more like an anxiety response, feeling like something was about to start when she moved, but then nothing even did. Discussed pt trying to restart her usual exercise routine and get more comfortable with movement. Pt motivated to try her exercises . If symptoms of vertigo continue, pt will return for scheduled follow-up. Physical Therapy Plan Frequency and Duration Frequency of Treatment 2x/Week Plan of Care Start Date 12/11/24 Plan of Care End Date 02/10/25 Therapeutic Interventions Therapeutic Interventions Balance Training,Canalithic Repositioning,Home Exercise Program,Manual Therapy, Neuromuscular Re-education, Patient/Caregiver Education, Self-Care/Home Management,Soft Tissue Mobilization, Therapeutic Activities, Therapeutic Exercises Next Visit Focus/Plan Next Note Type Treatment Note Next Visit Plan Positional testing, CRM as indicated
--- NOTE | 2024-12-25 12:32 | PT.OTN ---
Current Diagnoses Benign paroxysmal vertigo, left ear (12/25/24) Benign paroxysmal vertigo, bilateral (12/25/24) Dizziness and giddiness (12/25/24) Physical Therapy Treatment Note PT-OP-A Visit Information Start: 12/11/24 12:19 Freq: Status: Active Protocol: Document 12/25/24 12:15 DCW (Rec: 12/25/24 12:32 DCW [id number]) Out-Patient Physical Therapy Visit Information Visit Information Visit Type Discharge Summary Visit Start Time 12:15 Visit Stop Time 12:28 Visit Number 3 Number of TYPESETTERS PRINTER Visits 0 Evaluation Information Evaluation Date 12/11/24 PT-OP-B Current Condition Start: 12/11/24 12:19 Freq: Status: Active Protocol: Document 12/11/24 11:30 DCW (Rec: 12/11/24 12:39 DCW [id number]) Current Condition History of Current Condition Onset Date 08/28/22 Current Complaints Positional dizziness History of Current Condition Pt is a 69 year old female complaining of a two year history of motion-induced vertigo. Pt reports episodes last two minutes, maybe less. Symptoms are provoked by changing head positions. Symptoms began following a fall on 08/28/22, pt notes the fall resulted in a broken nose, jammed shoulder, and a smashed knee. admits she hasn 't felt quite right since. Pt denies recent hearing changes, diplopia, dysarthria, discoordination, or decreased mentation/consciousness. Pt reports symptoms are waxing/ waning in nature. Pt denies hx of HTN, hyperlipidemia, diabetes, arrhythmia, seizure, migraines, or CVA. Treatment Goals Patient/Caregiver Goals Dizziness has limited participation in exercise, whic has resulted in increased hip/back pain. Pt would like to be able to return to previous exercise program. PT-OP-C Subjective Start: 12/11/24 12:19 Freq: Status: Active Protocol: Document 12/25/24 12:15 DCW (Rec: 12/25/24 12:32 DCW [id number]) OP-PT Subjective Patient Comments Patient Comments Pt notes she is feeling better , notes her neck is moving more naturally following a visit to her chiro. PT-OP-O Vestibular Start: 12/11/24 12:19 Freq: Status: Active Protocol: Document 12/25/24 12:15 DCW (Rec: 12/25/24 12:32 DCW [id number]) Vestibular Assessment Positional Testing [place]-Hallpike Negative Left,Negative Right PT-OP-Q Treatments Start: 12/11/24 12:19 Freq: Status: Active Protocol: Document 12/18/24 14:30 DCW (Rec: 12/18/24 15:04 DCW [id number]) Canalithic Repositioning BPPV Treatment Shannon Affected Canal(s) Left posterior? Reps x1 Comments Modified Shannon PT-OP-T Assessment and Plan Start: 12/11/24 12:19 Freq: Status: Active Protocol: Document 12/25/24 12:15 DCW (Rec: 12/25/24 12:32 DCW [id number]) Physical Therapy Assessment Impairments Impairments Activity Tolerance,Balance, Functional Activities, Functional Mobility,Vestibular Goals Two Impairment Positive left Daniel-Hallpike Suspender Maker Goal (LTG) Negative positional testing bilaterally LTG Duration Met One Impairment Complaint of dizziness with positional changes Short Term Goal (STG) Pt to report ability to perform bed mobility with no symptoms of dizziness STG Duration Met Assessment Summary Assessment Positional testing once again negative. Pt feeling much better overall, no longer complaining of symptoms of vertigo. Appropriate for discharge at this time. Physical Therapy Plan Frequency and Duration Frequency of Treatment 2x/Week Plan of Care Start Date 12/11/24 Plan of Care End Date 02/10/25 Therapeutic Interventions Therapeutic Interventions Balance Training,Canalithic Repositioning,Home Exercise Program,Manual Therapy, Neuromuscular Re-education, Patient/Caregiver Education, Self-Care/Home Management,Soft Tissue Mobilization, Therapeutic Activities, Therapeutic Exercises Discharge Physical Therapy Discharge Reasons Goals Met Next Visit Focus/Plan Next Note Type Discharge Summary
== END 2024-12-28 13:25 | disposition home or self-care (01) ==
LOC: PHYS 12:15
PROVIDERS: Family Provider Family Medicine; PCP Family Medicine; Referring Provider Family Medicine; Visit Provider Family Medicine
DX: H81.13 Benign paroxysmal vertigo, bilateral (principal); H81.12 Benign paroxysmal vertigo, left ear
CPT/HCPCS: 95992; 97140; 97163